=== PATIENT | female | born 1955 | race Caucasian/White ===

== ENCOUNTER 2016-09-13 09:25 | Emergency (ER) | payer MEDICARE, MEDICAID ==
[2016-09-13 10:23] LABS: ABSOLUTE NEUTROPHIL COUNT 4.2 K/mm3 (1.8-7.7); BASO # 0.1 K/mm3 (0.0-0.2); EOS # 0.3 (0.0-0.5); EOS % 4.3 % (0.9-2.9); HEMATOCRIT 43.5 % (37.0-47.0); HEMOGLOBIN 14.9 gm/l (12.0-16.0); IMM NEUT% 0.3 % (0-1); LYMPH # 2.1 (1.0-4.8); LYMPH % 28.2 % (15-45); MEAN CORPUSCULAR HEMOGLOBIN 31.5 pg (27.0-31.0); MEAN CORPUSCULAR HGB CONC 34.3 g/dl (33.0-37.0); MEAN PLATELET VOLUME 10.4 fl (7.4-10.4); MONO # 0.7 (0.0-0.8); MONO % 9.1 % (4-12); NEUT % 57.1 % (43-75); PLATELET COUNT 378 K/mm3 (130-400); RED CELL DISTRIBUTION WIDTH 12.7 % (11.5-14.5)
--- NOTE | 2016-09-13 10:28 | RAD ---
EXAMINATION:CHEST - 2 VIEWS CLINICAL INDICATION: Several weeks of chest pain. COMPARISON:none FINDINGS: The cardiomediastinal silhouette is within normal limits. There is no adenopathy identified. There is no pleural effusion. There are prominent bronchovascular markings and hyperinflation. No lobar consolidation is identified. There is a wedge compression deformity of T12. IMPRESSION: 1. Hyperinflation compatible with COPD. 2. Prominent bronchovascular markings. This may be related to smoking history or subacute bronchitis. 3. Compression deformity T12 vertebral body.
[2016-09-13 10:41] LABS: ALB/GLOB RATIO 1.7 (>1.0); ALBUMIN 4.3 gm/dL (3.5-5.7); CALCIUM 9.4 mg/dL (8.6-10.3)
[2016-09-13] MEDS ORDERED: MECLIZINE HCL 25 MG TABLET ONE (12:06)
== END 2016-09-13 12:47 | disposition home or self-care (01) ==
LOC: ED 09:25
DX: R07.9 Chest pain, unspecified (principal); H81.10 Benign paroxysmal vertigo, unspecified ear; R00.2 Palpitations
CPT/HCPCS: 83880; 85025; 80053; 84484; 71020; 99284 ×2; 93005; A9270